=== PATIENT | female | born 1960 | race Caucasian/White ===

== ENCOUNTER 2021-03-22 08:54 | Day surgery (SDC) | payer MEDICARE, BC ==
[~2021-03-22 08:54] MED LIST: Lactated Ringers 1,000 ML IV SCH; Sodium Chloride 0.9% 10 ML Syringe FLUSH PRN
[2021-03-22] MEDS ORDERED: Lactated Ringers 1,000 ML IV SCH (09:28)
[2021-03-22] MEDS ORDERED: fentaNYL 100 MCG/2 ML SDV ONE (10:12)
[2021-03-22] MEDS ORDERED: Propofol 200 MG/20 ML SDV ONE (10:12)
[2021-03-22] MEDS ORDERED: Midazolam 1 MG/ML 2 ML SDV ONE (10:12)
[2021-03-22 11:27] VITALS: BP 112/56; PULSE 63
--- NOTE | 2021-03-23 07:53 | OR ---
PREOPERATIVE DIAGNOSIS: History of colon polyps. POSTOPERATIVE DIAGNOSIS: History of colon polyps. PROCEDURE PERFORMED: Colonoscopy with polypectomy at 20 cm. COMPLICATION: None. SPECIMENS: Polyp at 20 cm. PROCEDURE IN DETAIL: This was done in the endoscopy suite. Sedation was given per Anesthesia. She was placed in left lateral position. First, a rectal exam was done and was normal. Scope was introduced into the rectum and slowly advanced to the rectum, sigmoid, descending, transverse, and ascending colon until the cecum was reached. Upon reaching the cecum, scope was slowly withdrawn with no mucosal surfaces on the way out. No mucosal abnormalities, lesions, or polyps were noted except for one small polyp at 20 cm, which was removed by hot loop forceps. Remainder of the exam was normal. FINAL DIAGNOSIS: Polyp at 20 cm. BKD: 03/22/2021 11:15:15 MODL: 03/22/2021 17:03:03 /[id number]
[2021-03-28] MEDS ORDERED: Lactated Ringers 1,000 ML IV SCH (07:00)
== END 2021-03-22 11:55 | disposition home or self-care (01) ==
LOC: VM.SDS 08:54
PROVIDERS: ATTEND Surgery
DX: Z12.11 Encounter for screening for malignant neoplasm of colon (principal); Z83.71 Family history of colonic polyps; K63.5 Polyp of colon
CPT/HCPCS: 00811; 88305; J2250; J2704; J3010; J7120